=== PATIENT | male | born 1990 | race Caucasian/White ===

== ENCOUNTER 2017-05-15 16:23 | Emergency (ER) | payer OTHER ==
[~2017-05-15] VITALS: Ht 175.3 cm; Wt 68.5 kg
[2017-05-15 16:24] VITALS: Ht 175.3 cm; Wt 68.5 kg
--- NOTE | 2017-05-15 17:37 | ERD ---
ER Documentation Chief Complaint Date/Time DATE: 05/15/17 TIME: 17:35 Chief Complaint cough x 3 days denies SOB HPI This is a 27-year-old male that presents to the ER with a cough for the last 3 days. Cough is productive with yellow sputum. He denies any chest pain or shortness of breath. He denies any fevers or chills. He denies any sore throat or ear pain. Patient denies any sick contacts at home. He has not traveled anywhere. ROS 12 point review of systems was done, all negative except per HPI. Medications Home Meds Active Scripts Loratadine* (Loratadine*) 10 Mg Tablet, 10 MG PO DAILY, #30 TAB Prov:BLAZEDOYLE Navarro 05/15/17 Dextromethorphan Hb-Promethazine Hcl (Promethazine DM Syrup) 473 Ml Syrup, 10 ML PO Q6H Y for COUGH, #4 OZ Prov:DOYLE THAKUR C 05/15/17 Allergies Allergies: Coded Allergies: No Known Allergy (Unverified , 05/15/17) PMhx/Soc History of Surgery: No Anesthesia Reaction: No Hx Neurological Disorder: No Hx Respiratory Disorders: No Hx Cardiac Disorders: No Hx Psychiatric Problems: No Hx Miscellaneous Medical Probl: No Hx Alcohol Use: No Hx Substance Use: No Hx Tobacco Use: Yes Smoking Status: Current every day smoker Physical Exam Vitals Vital Signs Date Time Temp Pulse Resp B/P Pulse Ox O2 Delivery O2 Flow Rate FiO2 05/15/17 16:24 98.2 71 18 119/60 98 Physical Exam GENERAL: The patient is well-developed, well-nourished, in no acute distress. NECK: Cervical spine is non tender with no step off. Supple, no nuchal rigidity HEENT: Atraumatic. Pupils equal, round and reactive to light. Extraocular muscles are grossly intact. Conjunctivae pink, no discharge. Bilateral tympanic membranes are clear with no evidence of erythema, effusion or dulling of the light reflex. Tonsilar erythema with no exudates or uvular deviation. Clear rhinorrhea. RESPIRATORY: Clear to auscultation bilaterally. There are no rales, wheezes or rhonchi. HEART: Regular rate and rhythm. No murmurs, clicks, rubs or gallops. EXTREMITIES: No clubbing or cyanosis. Full range of motion. Grossly neurovascularly intact. NEUROLOGIC: Alert and oriented. Cranial nerves II through XII are intact. SKIN: There is no rash. The skin is warm and dry. Procedures/MDM Differential diagnosis includes but is not limited to; Viral URI, allergic rhinitis, bronchitis, pertussis,pneumonia. This is likely viral in etiology. Clinical suspicion for pneumonia is low as patient appears well, is not hypoxic or in any respiratory distress. Additionally, patients physical examination is benign. Plan was discussed with patient they understand and agree. Patient needs to follow up with PCP in 1-2 days or return to ER sooner if symptoms worsen. Departure Diagnosis: Primary Impression: Upper respiratory infection Condition: Stable DOYLE THAKUR May 15, 2017 17:36
--- NOTE | 2017-05-15 18:00 | RADRPT ---
PROCEDURE: XR Chest. CLINICAL INDICATION: Cough. TECHNIQUE: Single frontal view. COMPARISON: None. FINDINGS: The lungs are clear. The heart size is normal. There is no pleural effusion. There is no pneumothorax. IMPRESSION: 1. Normal chest radiograph. RPTAT: QQ .Amilcar Sanchez MD, Date Time Electronically viewed and signed by .Amilcar Sanchez MD, on 05/15/2017 18:00 .R/
[2017-05-15] MEDS ORDERED: D-ME473S18 PO (18:16)
[2017-05-15] MEDS ORDERED: LORA10TA3 PO (18:17)
== END 2017-05-15 18:34 | disposition home or self-care (01) ==
LOC: FTE 16:23
DX: J06.9 Acute upper respiratory infection, unspecified (principal); F17.210 Nicotine dependence, cigarettes, uncomplicated
CPT/HCPCS: 71010; Z7502

== ENCOUNTER 2017-10-10 22:22 | Emergency (ER) | payer OTHER ==
[~2017-10-10] VITALS: Ht 172.7 cm; Wt 69.9 kg
[~2017-10-10 22:22] MED LIST: D-ME473S18 PO; LORA10TA3 PO
[2017-10-10 22:26] VITALS: Ht 172.7 cm; Wt 69.9 kg
[2017-10-11] MEDS ORDERED: IBUPROFEN 600 MG TAB PO ONE (01:00)
[2017-10-11] MEDS ORDERED: BACITRACIN 0.9 GM OINT TOP ONE (01:00)
--- NOTE | 2017-10-11 02:03 | RADRPT ---
PROCEDURE: XR Left Elbow. CLINICAL INDICATION: Swelling., pain status post fall TECHNIQUE: AP, lateral and oblique views of the left elbow performed. COMPARISON: None. FINDINGS: Displaced intra-articular radial head fracture with hemarthrosis. No dislocation is seen. IMPRESSION: Nondisplaced intra-articular radial head fracture with hemarthrosis. RPTAT: HJES .Altaf Contrreas MD, MD Date Time Electronically viewed and signed by .Altaf Contreras MD, on 10/11/2017 02:02 .S/
[2017-10-11] MEDS ORDERED: IBUP-1542 PO (02:15)
--- NOTE | 2017-10-11 02:15 | ERD ---
ER Documentation Chief Complaint Chief Complaint S/p fall while playing football. Left elbow pain/swelling. HPI The patient is a 27-year-old male who presents to the emergency department with complaint of left elbow pain/swelling. The patient reports that prior to arrival , he was playing football, when he accidentally fell, landing onto his left upper extremity. Since, he has developed pain and swelling to the left elbow, noted to be worse with movement, and improved mildly at rest. He denies any numbness, paresthesias, weakness of the distal extremity. He denies fevers, sweats, chills, nausea, vomiting, head injury, loss of consciousness. He rates his current pain as 10/10, but has not yet taken any medication for pain relief. No other complaints at this time. ROS All systems reviewed and are negative except as per history of present illness. Medications Home Meds Active Scripts Ibuprofen* (Motrin*) 600 Mg Tab, 600 MG PO Q6, #30 TAB Prov:URSZULA WEST PA-C 10/11/17 Loratadine* (Loratadine*) 10 Mg Tablet, 10 MG PO DAILY, #30 TAB Prov:DOYLE THAKUR 05/15/17 Dextromethorphan Hb-Promethazine Hcl (Promethazine DM Syrup) 473 Ml Syrup, 10 ML PO Q6H Y for COUGH, #4 OZ Prov:DOYLE THAKUR 05/15/17 Allergies Allergies: Coded Allergies: No Known Allergy (Unverified , 05/15/17) PMhx/Soc Medical and Surgical Hx: pt denies Medical Hx, pt denies Surgical Hx History of Surgery: No Anesthesia Reaction: No Hx Neurological Disorder: No Hx Respiratory Disorders: No Hx Cardiac Disorders: No Hx Psychiatric Problems: No Hx Miscellaneous Medical Probl: No Hx Alcohol Use: No Hx Substance Use: No Hx Tobacco Use: Yes Smoking Status: Current some day smoker Physical Exam Vitals Physical Exam Const: Well-developed, well-nourished, no acute distress. Head: Normocephalic. Atraumatic Eyes: Normal Conjunctiva. ENT: Normal External Ears, Nose and Mouth. Neck: Supple. Full range of motion. Resp: Clear to auscultation bilaterally. Cardio: Regular rate and rhythm. Skin: Superficial abrasions over left lateral elbow. No bleeding. No petechiae or rashes. Back: Normal range of motion. Ext: No clubbing or cyanosis. Moderate swelling over the left elbow. Tenderness to palpation over the left radial head. Increased pain with pronation /supination of the left forearm. No wrist drop. Radial, median and ulnar nerve distributions intact. Compartments are soft. Radial and ulnar pulses 2+. Capillary refill is less than 2 seconds. Neur: Awake and alert. Psych: Cooperative. Appropriate. Results 24 hrs Current Medications Medications (Trade) Dose Ordered Sig/Ritu Route PRN Reason Start Time Stop Time Status Last Admin Dose Admin Ibuprofen (Motrin) 600 mg ONCE ONCE PO 10/11/17 01:00 10/11/17 01:01 DC 10/11/17 01:13 Bacitracin (Bacitracin Oint (Ud)) 1 applic ONCE ONCE TOP 10/11/17 01:00 10/11/17 01:01 DC 10/11/17 01:14 Procedures/MDM DIAGNOSTIC TESTS AND INTERPRETATION: PROCEDURE: XR Left Elbow. CLINICAL INDICATION: Swelling., pain status post fall TECHNIQUE: AP, lateral and oblique views of the left elbow performed. COMPARISON: None. FINDINGS:Displaced intra-articular radial head fracture with hemarthrosis. No dislocation is seen. IMPRESSION:Nondisplaced intra-articular radial head fracture with hemarthrosis. .Altaf Contreras MD, MD Date Time Electronically viewed and signed by .Altaf Contreras MD, MD on 10/11/2017 02:02 SPLINT APPLICATION: INDICATION: Radial head fracture. LOCATION: Left upper extremity. TYPE OF SPLINT: Long arm splint. NEUROVASCULAR EXAM: The patients extremity was neurovascularly intact prior to and status post splint placement. MEDICAL DECISION MAKING: This is a 27 year old male presenting to the emergency department with left elbow pain s/p fall. The patient had tenderness to palpation over the radial head on physical examination, with significant pain upon attempted movement of the patient's right elbow. Moderate swelling was noted to the elbow. The differential diagnosis includes, but is not limited to, fracture, sprain, strain, effusion, contusion, bursitis, arthritis, laceration, abrasion, dislocation. I have no clinical suspicion for compartment syndrome, compartments are soft. No evidence for neurovascular compromise distal to injury. X-ray imaging revealed a nondisplaced intra- articular radial head fracture with hemarthrosis. Patient's abrasion was cleansed. Bacitracin and dressing applied. The patient's extremity was then placed in a posterior long arm splint. The patient's condition improved during his stay after the administration of ibuprofen. Upon reevaluation, the patient reports no new complaints and decreased pain. Upon my review and interpretation of the patient's presentation and overall ER course I believe the patient's symptoms are most consistent with left radial head fracture. At this time, the patient is in stable condition and therefore can be discharged home with prescription for ibuprofen and strict return precautions for signs of acute deterioration of condition. The patient is instructed to follow up with a primary medical provider and/or relationship specialist within 1-2 days for reevaluation and further management, or return to the ER sooner if symptoms persist or worsen. I shared my medical decision making and plan with the patient and he verbally understands and agrees with the plan for further observation and care as an outpatient. At the time of discharge all questions were answered. Departure Diagnosis: Primary Impression: Fracture of radial head, left, closed Encounter type: initial encounter Fracture alignment: nondisplaced Qualified Code: S52.125A - Closed nondisplaced fracture of head of left radius , initial encounter Additional Impression: Elbow abrasion Encounter type: initial encounter Laterality: left Qualified Code: S50.312A - Abrasion of left elbow, initial encounter Condition: Stable Patient Instructions: Abrasion, Radial Head Fracture Additional Instructions: Call your primary care doctor TOMORROW for an appointment during the next 1-2 days. Please obtain a referral to an relationship specialist. See the doctor sooner or return here if your condition worsens before your appointment time. URSZULA WSET PA-C Oct 11, 2017 02:15
[2017-10-11 02:37] VITALS: PULSE 68; RESP 20; TEMP 98.2
== END 2017-10-11 02:35 | disposition home or self-care (01) ==
LOC: FTE 22:22
DX: S52.125A Nondisplaced fracture of head of left radius, initial encounter for closed fracture (principal); S50.312A Abrasion of left elbow, initial encounter; F17.210 Nicotine dependence, cigarettes, uncomplicated; W18.39XA Other fall on same level, initial encounter; Y92.9 Unspecified place or not applicable
CPT/HCPCS: 29105; 73080; Z7610